=== PATIENT | female | born 1950 | race Caucasian/White ===

== ENCOUNTER 2016-07-20 16:10 | Inpatient (IN) | payer OTHER, MEDICARE ==
[2016-07-20] VITALS (7 sets, daily range): BP systolic 108–177; BP diastolic 63–78; PULSE 67–74; RESP 16–20; O2SAT 95–98
[~2016-07-20] VITALS: Ht 162.6 cm; Wt 87.6 kg
[~2016-07-20 16:10] MED LIST: ASCO100089 PO; ASPI81TA3 PO; ATOR40TA69 PO; CHOL-9 PO; CLOP75TA28 PO; LACT1CAP64 PO; METO25TA6 PO; NITR0.4T SL; VIT1TABL25 PO; [UNRECOGNIZED DRUG - OTHER] BOTH_EYES
--- NOTE | 2016-07-20 16:22 | ED.REPORT ---
[facility]-General Illness Date of Service Jul 20, 2016 ED Provider: Dr. Christine Pt is a 66 y/o female w/ a hx of CAD and [place] x2 s/p CABG, HTN, presenting to the ED via EMS due to dysrhythmia prior to arrival. The patient was being transferred for direct admission from [facility] due to unstable angina. While being transferred, medics called ahead and asked for an evaluation in the ED prior to admission due to what appeared to be sustained ventricular dysrhythmia. EMS strip shows torsades vs sustained polymorphic ventricular tachycardia. Paramedics tell me the patient had no changes in mental status or symptoms while this was occurring. Dr. Schafer was paged at 1610 and responded immediately and is coming down to see the patient in person along with hospitalist Dr. Ac Tuttle. 2 G magnesium started in the ambulance and patient arrives on heparin drip. Records from [facility] were reviewed: CBC unremarkable. Chemistry unremarkable with an exception of glucose of 107. Magnesium lab value not obtained. Troponin was normal by their assay less than 0.010. INR was 1.0. EKG at [facility] dated 07/20/16 shows sinus rhythm without acute ischemic changes x2. Chest x-ray was negative. Nursing Notes Stated Complaint: DYSRHYTHMIA Chief Complaint: Dysrhythmia/Cardiac Nursing Notes Reviewed: Yes Allergies: Coded Allergies: No Known Allergies (Verified Allergy, Unknown, 02/04/15) Scheduled ([thyadine]) 1 GTT BOTH_EYES DAILY Ascorbic Acid (Vitamin C) 1,000 Mg Tab.chew 1,000 MG PO BID Aspirin Chew (Aspirin Chew) 81 Mg Tablet 81 MG PO DAILY Atorvastatin Calcium (Atorvastatin Calcium) 40 Mg Tablet 80 MG PO HS Clopidogrel (Clopidogrel) 75 Mg Tablet 75 MG PO DAILY Lactobacillus Rhamnosus R0011 (Probiotic Digestive Care) 1 Each Capsule 1 EACH PO noon Metoprolol Tartrate (Metoprolol Tartrate) 25 Mg Tablet 12.5 MG PO BID Vit A,C & E/Lutein/Minerals (Ocuvite with Lutein Tablet) 1 Each Tablet 0.5 TAB- CAP PO DAILYWD Scheduled PRN Nitroglycerin SL (Nitrostat) 0.4 Mg Tablet 0.4 MG SL PRN PRN PRN For Chest Pain Miscellaneous Medications Cholecalciferol (Vitamin D3) (Vitamin D3) 10,000 Unit Tablet 30,000 UNIT PO General Time Seen by MD: 16:21 Chief Complaint Other (Dysrhythmia) Hx Obtained From: Patient, EMS Arrived By: Ambulance Sudden in Onset?: Yes Onset Occurred: 1 - 15 minutes ago Symptom Duration: 1 - 15 minutes Severity: Current: No pain currently Severity: Maximum: No pain Recent Healthcare: Recent doctor visit, Recent testing Past Medical History Past Medical History CAD w/ [place] x2 s/p CABG Hypertension Hiatal hernia Hx kidney stones Hx UTI Depression Past Surgical History CABG Bilateral breast augmentation Family History Breast CA - mother Smoking History Former Smoker Social History Alcohol Use: "Social" Ambulatory Status Independent Review of Systems Full Review of Systems Respiratory: Denies: Shortness of breath Cardiovascular: Denies: Chest pain, Palpitations Neurologic: Denies: Change LOC, Lightheaded Complete sys rev & neg: except as marked. Physical Exam Vital Signs Vital Signs Date Time Temp Pulse Resp B/P Pulse Ox O2 Delivery O2 Flow Rate FiO2 07/20/16 16:10 37.0 72 20 177/70 97 Room Air Initial VS: Reviewed, Vital signs abnormal Head / Eyes: Atraumatic, Normocephalic, PERRL ENT: Conjunctiva normal, No scleral icterus Neck: Full range of motion Respiratory: No respiratory distress Abdomen / GI: No distention Extremities: Vascular intact, No swelling Skin: Warm, Dry, No cyanosis Neurologic: Alert, Oriented, Nonfocal Psychiatric: Mood/affect normal, Behavior normal, Normal thought content General/Constitutional: Awake, Alert, No acute distress, Well appearing, Cooperative, Not toxic appearing Interpretation & Diagnostics ECG Interpretation ECG Interpretation: Normal sinus rhythm rate [address] flattening Time: 16:53 Interpreted by: ED physician, Aircraft Skin Burnisher Normal ECG Interpretation: No acute ischemic changes Re-Eval/Medical Decision Med Decision/Clinical Course 66-year-old female diverted from direct admit to the emergency department by EMS of concern for possible cardiac dysrhythmia. The patient was asymptomatic during the period of time the possible dysrhythmia was occurring. from the Rhythm strip, it appears at this was likely artifact. It is actually her rhythm I would be surprised if it was perfusing. Patient was stable throughout her stay here in the department. She was seen by cardiology and medicine and admitted as planned. Consultation #1: Referral / Consult Name: Wilder Schafer MD Consulted With: Cardiology Call Returned at: 16:20 Garment Inspector: Will see patient, Agrees with eval, Agrees with plan Note: Evaluated patient in room at time of arrival. Believes the rhythm might have been artifact although it is difficult to say with certainty. Consultation #2: Referral / Consult Name: Ac Tuttle MD Consulted With: Hospitalist Call Returned at: 16:20 Garment Inspector: Will see patient, Agrees with eval, Agrees with plan, Accepts admit Note: Evaluated the patient in the room at time of arrival. Counseled Regarding: Diagnosis, Lab results, Need for admission Discharge & Departure Primary Impression: Ventricular arrhythmia Disposition: ADMITTED TO HOSPITAL Discharge Condition All VS Reviewed: Yes Condition: Stable Referrals: Ever Oshea MD (PCP) Scribe Attestation Portions of this note were transcribed by Jerry Caballero. I, Dr. Christine personally performed the history, physical exam and medical decision-making; I reviewed and confirmed the accuracy of the information in the transcribed note. Signed by Marisabel Johnson, 07/20/16 - [id number] copies to: Ever Oshea MD, Donald L MD Jul 20, 2016 16:21 JERRY CABALLERO Jul 20, 2016 16:29
[2016-07-20] MEDS ORDERED: Heparin 5,000 Unit/mL Inj IVPUSH PRN ×2 (16:50→17:30)
[2016-07-20] MEDS ORDERED: Heparin 25K Unit/500mL 0.45 NS 25,000 UNIT in IV Premix 1 EACH IV SCH ×2 (16:50→17:30)
[2016-07-20] MEDS ORDERED: Ondansetron 2 mg/mL 2 mL Inj IVPUSH PRN ×2 (16:50→17:30)
[2016-07-20] MEDS ORDERED: Polyethylene Glycol (PEG) 17 Gm Powder PO PRN ×2 (16:50→17:30)
[2016-07-20 17:24] LABS: Magnesium 2.5 mg/dL (1.6-2.6)
[2016-07-20 17:28] LABS: TROPONIN T < 0.010 ug/L (0.0-0.011)
[2016-07-20] MEDS ORDERED: MeTOProlol 1 mg/mL 5 mL Inj IVPUSH SCH (17:40)
--- NOTE | 2016-07-20 17:44 | PCM.CHPCAR ---
Consult Subjective Date of service Jul 20, 2016 Date of admit Provider Requesting Consult Requesting Provider: David Christine MD Primary Care Physician Primary Care Provider: Ever Oshea MD Chief Complaint chest pain History of Present Illness This is a 66-year-old female with history of coronary artery bypass grafting back in July 2009 with a KAISER to LAD and saphenous to OM. The patient did well until 2014 she was admitted at [facility] with increasing episodes of chest pain and elevated troponins. The patient proceeded with a coronary and bypass angiogram showed 99% stenosis of mid body saphenous vein graft to the obtuse marginal artery. KAISER to LAD was patent. RCA showed total occlusion but with left to right collaterals. She received 2 bare metal stents to the saphenous vein graft and her symptoms resolved. However the patient continued to have recurrent chest pain and we started isosorbide mononitrate. She proceeded with a Lexiscan sestamibi just after that visit which show no evidence of significant ischemia. With reassurance she was asked to follow-up in 6 months. However back in January 2016 she was experiencing exertional chest pain that was concerning for angina. We increased her metoprolol titrated to 25 mg twice a day and started amlodipine once a day. I asked her to come back to follow-up to see how she was doing. In June 2009 she started to experience slight worsening of her chest pain so Ranexa was started 500 mg twice a day. Schedule stress echocardiogram soon thereafter because she was still complaining of significant and limited chest discomfort. The patient proceeded with a stress echocardiogram under modified Bubba protocol and she exercise just for 3 minutes and 55 seconds reaching only 69% of the patient's predicted heart rate. She had some slight ST depressions but nothing really conclusive for ischemia. Her resting ejection fraction was 53% without LV wall motion abnormalities. However post immediate stress echo images showed hypokinesis along the base to mid septum with questionable infarction involving the basal inferior wall. There is no significant augmentation of LV ejection fraction post stress. The patient also developed chest pain at low heart rate requiring some bleeding with nitroglycerin tablets. The patient was going to be scheduled for an outpatient cardiac catheterization but she presented to [facility] because of severe chest pain this morning. The patient decided to present herself to their emergency room house called to see if we should transfer the patient to [facility] for potential cardiac catheterization. The patient was transferred over to [facility] but in route she apparently developed some acute EKG changes that was concerning for torsades. She was given 2 g of intravenous magnesium and she was completely asymptomatic. However on my personal review shows sinus rhythm with artifact between her QRSs. The patient has not had any significant ventricular arrhythmias since being placed on a monitor. She denies any current chest pain at this moment. Review of Systems Review of Systems CONSTITUTIONAL: Negative for fever, weight loss or weight gain. HEENT: Eyes: Negative for glaucoma or cataracts. Ears: Negative pain or loss of hearing. Nose: Negative for nasal congestion. Negative for rhinorrhea or postnasal drip. Mouth: Negative for false teeth. Throat: Negative for masses or hoarseness. Negative for snoring. CARDIOVASCULAR: Positive for chest pain and palpitations but negative for, near syncope, syncope, PND, or orthopnea. RESPIRATORY: Negative for shortness of breath, hemoptysis, COPD, cough. GASTROINTESTINAL: Negative for nausea, vomiting, diarrhea or heartburn. GENITOURINARY: Negative for dysuria. MUSCULOSKELETAL: Negative for osteoarthritis. SKIN: Negative for rashes. NEUROLOGIC: Negative for headaches, blurry vision, CVA, mental status changes. PSYCHIATRIC: Negative for depression. Negative for daytime sleepiness or insomnia. ENDOCRINE: Negative for diabetes or thyroid abnormalities. HEMATOLOGIC: Negative for anemia or blood dyscrasias. Additional Information MEDS: Amlodipine 5 mg once a day Aspirin 81 mg once a day Atorvastatin 40 mg by mouth daily at bedtime Code Q10 200 mg once a day Metoprolol tartrate 25 mg half a tablet twice a day Clopidogrel 75 mg once a day Vitamin D3 Vitamin E Isosorbide mononitrate ER 60 mg 1 tablet once a day PMH Past Medical History Coronary artery disease History of coronary artery bypass grafting 2 Personal history of tobacco use Back pain Stable angina Hyperlipidemia History of non-ST elevation myocardial infarction Presence of bypass graft stent Hypertension Scheduled ([thyadine]) 1 GTT BOTH_EYES DAILY (Reported) Ascorbic Acid (Vitamin C) 1,000 Mg Tab.chew 1,000 MG PO BID (Reported) Aspirin Chew (Aspirin Chew) 81 Mg Tablet 81 MG PO DAILY Atorvastatin Calcium (Atorvastatin Calcium) 40 Mg Tablet 80 MG PO HS Clopidogrel (Clopidogrel) 75 Mg Tablet 75 MG PO DAILY Lactobacillus Rhamnosus R0011 (Probiotic Digestive Care) 1 Each Capsule 1 EACH PO noon (Reported) Metoprolol Tartrate (Metoprolol Tartrate) 25 Mg Tablet 12.5 MG PO BID Vit A,C & E/Lutein/Minerals (Ocuvite with Lutein Tablet) 1 Each Tablet 0.5 TAB- CAP PO DAILYWD (Reported) Scheduled PRN Nitroglycerin SL (Nitrostat) 0.4 Mg Tablet 0.4 MG SL PRN PRN PRN For Chest Pain Miscellaneous Medications Cholecalciferol (Vitamin D3) (Vitamin D3) 10,000 Unit Tablet 30,000 UNIT PO ( Reported) Current Inpatient Medications Current Medications Ondansetron HCl 4 to 8 mg Q4H PRN IVPUSH; Start 07/20/16 at 16:50; Stop at 17:27; Status DC Senna 17.2 mg BID PRN PO; Start 07/20/16 at 16:50; Stop 07/20/16 at 17:27; Status DC Polyethylene Glycol 17 gm DAILY PRN PO; Start 07/20/16 at 16:50; Stop 07/20/16 at 17:27; Status DC Aspirin 325 mg DAILY PO; Start 07/20/16 at 16:50; Stop 07/20/16 at 17:27; Status DC Morphine Sulfate 1-2 mg Q4H PRN IV; Start 07/20/16 at 16:50; Stop 07/20/16 at 17:27; Status DC Clopidogrel Bisulfate 75 mg DAILY PO; Start 07/20/16 at 16:50; Stop 07/20/16 at 17:27; Status DC Metoprolol Tartrate 12.5 mg BID PO; Start 07/20/16 at 20:30; Stop 07/20/16 at 20 :30; Status DC Heparin Sodium (Porcine) Per Protocol for a... PRN PRN IVPUSH; Start 07/20/16 at 16:50; Stop 07/20/16 at 17:27; Status DC Allergies: Coded Allergies: No Known Allergies (Verified Allergy, Unknown, 02/04/15) Family History Family History Father of 73 with sudden cardiac arrest secondary to myocardial infarction. Mother at 64 from myocardial infarction with an earlier episodes of heart attacks. Social History Hx Alcohol Use: Yes ("glass of wine 2-3x's a week")Hx Substance Use: NoHx Tobacco Use: No Smoking Status: Former Smoker Living Arrangement: with Family Exam Vital Signs Vital Sign - Last Date Time Temp Pulse Resp B/P Pulse Ox O2 Delivery O2 Flow Rate FiO2 07/20/16 16:45 68 17 164/75 97 Room Air 07/20/16 16:10 37.0 Objective GENERAL: This is a well-nourished, well-developed patient, in no apparent distress. HEAD: Atraumatic. Normocephalic. No temporal or scalp tenderness. EYES: Pupils equal round and reactive. Extraocular motions intact. No scleral icterus. No injection or drainage. ENT: Nose without bleeding, purulent drainage or septal hematoma. Throat without erythema, tonsillar hypertrophy or exudate. Uvula midline. Airway patent. NECK: Trachea midline. No JVD or lymphadenopathy. Supple, nontender, no meningeal signs. CARDIOVASCULAR: Regular rate and rhythm without murmurs, gallops, or rubs. RESPIRATORY: Clear to auscultation. Breath sounds equal bilaterally. No wheezes , rales, or rhonchi. GASTROINTESTINAL: Abdomen soft, non-tender, nondistended. No hepato-splenomegaly , or palpable masses. No guarding. EXTREMITIES: No clubbing, cyanosis, or edema. No joint tenderness, effusion, or edema noted. No calf tenderness. Negative Homans sign bilaterally. BACK: Nontender without deformity or crepitance. No flank tenderness. Lab and Diagnostics 12-lead ECG Sinus rhythm with nonspecific ST-T changes. These are old in comparison to her previous EKG. EKGs from medics shows sinus rhythm with artifact between QRSs. This is not torsades. Assessment & Plan Problems: (1) Unstable angina pectoris Plan: Symptoms are concerning for unstable angina. Given her recent abnormal stress echocardiogram, I think it would be prudent to admit the patient and schedule her for heart catheterization tomorrow at the schedule allows it. We will keep nothing by mouth just in case. For now we will load her up with clopidogrel 300 mg 1 and start her on IV heparin. She will continue with her metoprolol, amlodipine, atorvastatin, and low dose ASA. The patient agrees to the plan. I will ask my associate Dr. Levine to perform the cardiac catheterization. Status: Acute ICD Code: I20.0 (2) Coronary artery disease Qualifiers: Coronary Disease-Associated Artery/Lesion type: ruby artery [place] vs. transplanted heart: ruby heart Associated angina: with unstable angina Qualified Code: I25.110 - Atherosclerotic heart disease of ruby coronary artery with unstable angina pectoris Status: Chronic ICD Code: I25.10 (3) Hyperlipidemia Qualifiers: Hyperlipidemia type: Mixed hyperlipidemia Qualified Code: E78.2 - Mixed hyperlipidemia Status: Chronic ICD Code: E78.5 (4) Hypertension Qualifiers: Hypertension type: essential hypertension Status: Chronic ICD Code: I10 (5) History of coronary artery bypass graft x 2 Status: Chronic ICD Code: Z95.1 Cardiology Plan: Catherization, Lipid assessment & treatment Resuscitation Status: CPR: Attempt Resuscitation Time spent 80 minutes Wilder Schafer MD Jul 20, 2016 17:44
--- NOTE | 2016-07-20 17:48 | PCM.HPMED ---
Subjective Date of Service Jul 20, 2016 Primary Provider: Admitting Physician: Primary Care Physician: Cami Flores MD Attending Physician: Admit Status: From the Emergency Department, Full Admit, Admit to [facility] Team, [facility] Telemetry Chief Complaint: Chest pain History of Present Illness: This is a 66-year-old female who is known to cardiology has a history of CAD with multiple myocardial infarctions and coronary bypass grafting. She apparently also has had stenting T1 over bypass grafts in approximately 2014. The patient has had recent increased vague chest pain symptoms prompting a dobutamine stress echo just 3 days ago. The results of that are said to indicate a septal abnormality. The patient developed acute neck pain today while at rest. No associated nausea vomiting or diaphoresis. No dyspnea. No recent exertional chest pain or pedal edema. No recent rhinorrhea or cough. She presented to the general ER where an EKG indicated T-wave inversions in leads V1 nightly 3. ST segment depressions or elevations. She had a negative troponin and was transferred here. Upon transfer there is a concern of torsades. No action was taken this resolved. The patient was entirely asymptomatic. Strips reviewed here and are felt to represent artifact. Review of Systems: No recent headache visual changes difficulty with hearing. No fevers or chills. No hematuria or dysuria. No polyuria. No nausea vomiting or diarrhea or blood per rectum. Also reviewed otherwise negative except as noted in history of present illness. Allergies Coded Allergies: No Known Allergies (Verified Allergy, Unknown, 02/04/15) Home Medications Medications include vitamin C 3000 mg twice a day aspirin 81 mg daily vitamin D3 5000 units twice a day CoQ10 10 mg daily isosorbide mononitrate 60 mg daily metoprolol XL 12.5 mg in the morning 25 with dinner her knowledge seen 5 mg twice a day Crestor 10 mg daily PMH 1. CAD with history of CABG and stents and bypass graft 2. Sodium had multiple myocardial infarctions. 3. Hypertension 4. Hiatal hernia. 5. Nephrolithiasis Surgical History CABG Family History Mother with breast cancer. Social History Occupation: works at [employer]. Hx Alcohol Use: Yes ("glass of wine 2-3x's a week") Hx Substance Use: No Hx Tobacco Use: No Smoking Status: Former Smoker Living Arrangement: Alone Exam Vital Signs Vital Sign - Last Date Time Temp Pulse Resp B/P Pulse Ox O2 Delivery O2 Flow Rate FiO2 07/20/16 16:45 68 17 164/75 97 Room Air 07/20/16 16:10 37.0 Exam Are going to 3. No distress. Fluent speech. Normal skull. Normal. Anicteric sclerae, symmetric pupils Oropharynx unremarkable no droop. Neck supple, normal thyroid. No adenopathy Lungs are clear to auscultation. Heart is regular without murmur gallop or rub Abdomen is soft nontender. Extremities are free of edema with good pedal and radial pulses. Skin is free of rash or lesions. Joints are not swollen or deformed. Muscles normal tone. Flat affect Lab and Diagnostics 12-lead ECG Normal sinus rhythm with T-wave inversions in lead V1 nightly 3. No ST segment changes. Assessment & Plan 1. Unstable angina. POA. Plan is to discontinue heparin drip and other baseline cardiac medications including dual antiplatelet agents. Patient seen by cardiology in the ED and will presumptively undergo an angiogram tomorrow. 2. Hypertension, POA. We will continue Toprol. 3. Question of torsades while being transported but lately likely artifact. POA. We will follow clinically with telemetry. 4. Obesity, POA. 5. Patient is full resuscitation, discussed at time of admit para patient is admitted inpatient status with anticipated length of stay of over 2 nights. Pain Evaluation: Adequate Pain Control Resuscitation Status: CPR: Attempt Resuscitation Time spent 40 minutes Ac Tuttle MD Jul 20, 2016 17:48
--- NOTE | 2016-07-20 19:18 | NUR ---
Arrived to Unit Pt arrived to PCC room 2021 at ~1540 from ED. Pt's VSS on RA, A&Ox3, denied chest pain. Pt potentially going to laborer cook house in the am per laboratory phlebotomist, Pt made NPO after midnight.
--- NOTE | 2016-07-20 21:27 | NUR ---
chest pain: pt/ c/o chest pressure, near throat, 2/10, ekg obtained, pt. given one nitro.
[2016-07-20] MEDS: Sodium Chloride LOK Flush 10 mL Syringe IVFLUSH SCH (23:56)
[2016-07-21] VITALS (8 sets, daily range): BP systolic 121–147; BP diastolic 64–84; PULSE 56–68; RESP 16–20; O2SAT 95–98
[2016-07-21] MEDS ORDERED: RANO500T3 PO (02:14)
[2016-07-21] MEDS ORDERED: ATOR40TA69 PO (02:14)
[2016-07-21] MEDS ORDERED: LACT1CAP73 PO (02:14)
[2016-07-21] MEDS ORDERED: GLUC-123 PO (02:14)
[2016-07-21] MEDS ORDERED: DOCU240C41 PO (02:14)
[2016-07-21 05:21] LABS: BASOPHILS % (AUTO) 0.3 % (0-3); MONOCYTES % (AUTO) 12.1 % (4-12); Mean Corpuscular Hemoglobin 32.2 pg (27.0-35.0); Mean Corpuscular Volume 99.3 fL (81-100); NEUTROPHILS % (AUTO) 53.2 % (40-74); Platelet Count 163 bil/L (150-400)
[2016-07-21 05:57] LABS: TROPONIN T 0.01 ug/L (0.0-0.011)
[2016-07-21] MEDS ORDERED: 0.9% Sodium Chloride 1,000 ML IV ONE (06:00)
[2016-07-21] MEDS: [UNRECOGNIZED DRUG - OTHER] BOTH_EYES SCH (08:30)
[2016-07-21] MEDS: Sodium Chloride LOK Flush 10 mL Syringe IVFLUSH SCH ×2 (10:27→16:30)
--- NOTE | 2016-07-21 17:25 | NUR ---
spiritual care: pt request for ritual rec. through nursing provided communion ritual and conversational support. Pt apprehensive about surgery. appreciative of spiritual care support; will plan to follow
--- NOTE | 2016-07-21 17:32 | NUR ---
Social Work Note: Initial Assessment Data& Assessment: EMR reviewed. SW met with pt at bedside to discuss discharge planning, SW role explained. SW provided phone number on pt whiteboard. Sarah Zelaya is a 66 year old female admitted on 07/20/2016 for unstable angina. Pt will be going to the laborer construction or leak gang tomorrow. Pt has [employer] out of [facility] and Medicare insurance coverage. Pt sees Cami Flores MD for primary care. Pt lives in [place] in a condo on the second floor with 15 steps to get to her condo. Pt is independent at baseline but pt daughter does help carry groceries up to her condo and helps ensure her medications are managed correctly. Pt does not use any DME and denies any HH or SNF hx. Pt denies LT insurance or VA benefits. Pt provided with DPOA/Advanced Directive paperwork per her request. Pt confirmed her daughter will be transporting her home when medically ready. Pt denies any other needs at this time. SW to continue to follow if any needs arise. Plan: Anticipated discharge home via POV when medically ready. Pt denies any other needs at this time. SW to continue to follow if any needs arise. ASTRID Rhodes Addendum: 07/21/16 at 1736 by SWAPNIL HOFFMAN Amended: Links added.
--- NOTE | 2016-07-21 18:22 | NUR ---
Uneventful shift Patient alert and oriented x3, up independently in the room, no reports of chest pain -- patient did report one episode of "a little pressure" that resolved within a few moments. HR sinus/constantin high 50s-mid 60s, SPO2 high 90s on RA, Afebrile, tolerating PO intake well with no reports of n/v/d/c or abdominal pain. Patient NPO at midnight for brick and blocker aid labor tomorrow -- heparin gtt currently infusing at 950 units per hour.
--- NOTE | 2016-07-21 21:40 | PCM.PNMED ---
Subjective Date of Service Jul 21, 2016 Subjective Overnight: Uneventful overnight, no complaints. Today: He reports some mild shortness of breath, improved. He also repeats continuing decreased appetite. Otherwise, he has no complaints. Exam Vital Signs Vital Sign - Last Date Time Temp Pulse Resp B/P Pulse Ox O2 Delivery O2 Flow Rate FiO2 07/21/16 04:51 36.7 65 16 147/84 95 Room Air Intake and Output 07/20/16 07/20/16 07/21/16 Cumulative From/Thru 15:00 23:00 07:00 07/20/16 16:10 - 07/21/16 06:08 Intake Total 10 ml 460 ml 470 ml Output Total 450 ml 1000 ml 1450 ml Balance -440 ml -540 ml -980 ml Intake Oral 300 ml 300 ml IV Total 10 ml 160 ml 170 ml Output Urine Total 450 ml 1000 ml 1450 ml # Voids 3 3 # Bowel Movements 1 1 2 Exam General: Frail and ill-appearing gentleman lying in bed. No acute distress, well -developed, well-nourished, appropriately interactive. HEENT: Normocephalic, atraumatic. Dry scalp. External ears without defect. Pupils equal, round, and reactive to light. Anicteric sclerae, moist conjunctivae, and no lid lag. Neck: Supple. No lymphadenopathy or thyromegaly. Cardiovascular: Regular rate and rhythm with no murmurs, rubs, or gallops appreciated Pulmonary: Wheezes bilaterally, worse on right. Abdomen: Bowel tones present. Soft, nontender, nondistended. Extremities: No clubbing, cyanosis, edema, or lymphadenopathy appreciated. Skin: No rash, ulcers, or subcutaneous nodules appreciated. Neurological: Cranial nerves grossly intact. Psychiatric: Normal mood and affect. Alert and oriented to person, place, and time. IVs and Medications Medications Reviewed: Medications were reviewed in detail Lab and Diagnostics Result Diagram: 07/21/16 0510 07/21/16 0510 12-lead ECG Normal sinus rhythm with T-wave inversions in lead V1 nightly 3. No ST segment changes. Assessment & Plan This is a 66-year-old who presented herself to their emergency room as a transfer to [facility] for potential cardiac catheterization. The patient was transferred over to [facility] but in route she apparently developed some acute EKG changes that was concerning for torsades. She was given 2 g of intravenous magnesium and she was completely asymptomatic. However on my personal review shows sinus rhythm with artifact between her QRSs. The patient has not had any significant ventricular arrhythmias since being placed on a monitor. She denies any current chest pain at this moment. 1. Unstable angina. POA. Active. - Plan is to discontinue heparin drip and other baseline cardiac medications including dual antiplatelet agents. - Patient seen by cardiology in the ED and will presumptively undergo an angiogram today. 2. Hypertension, POA. Controlled. - We will continue Toprol. 3. Question of torsades while being transported but lately likely artifact. POA. - We will follow clinically with telemetry. 4. Obesity, POA. Active. -BMI 33.3 Patient is full resuscitation, discussed at time of admit para patient is admitted inpatient status with anticipated length of stay of over 2 nights. Pain Evaluation: Adequate Pain Control Resuscitation Status: CPR: Attempt Resuscitation Time spent 35 minutes Attending Statement Patient seen and examined with house staff. Agree with all attached documentation. JENNIFER BUENO DO Jul 21, 2016 09:53 Ac Tuttle MD Jul 30, 2016 07:19
[2016-07-22] VITALS (17 sets, daily range): BP systolic 106–149; BP diastolic 56–92; PULSE 58–95; RESP 16–22; O2SAT 92–98
[2016-07-22] MEDS: Sodium Chloride LOK Flush 10 mL Syringe IVFLUSH SCH ×4 (00:20→23:32)
[2016-07-22 04:53] LABS: BASOPHILS % (AUTO) 0.4 % (0-3); EOSINOPHILS % (AUTO) 3.1 % (0-5); MONOCYTES % (AUTO) 14.4 % (4-12); Mean Corpuscular Hemoglobin 32.5 pg (27.0-35.0); Mean Corpuscular Volume 99.5 fL (81-100); NEUTROPHILS % (AUTO) 55.1 % (40-74); Platelet Count 160 bil/L (150-400)
--- NOTE | 2016-07-22 06:42 | NUR ---
back pain pt c/o 02/08 back pain she thinks r/t the bed, called received order for tylenol 650mg PO gave with good results, heprin gtt infusing
[2016-07-22] MEDS: [UNRECOGNIZED DRUG - OTHER] BOTH_EYES SCH (08:08)
--- NOTE | 2016-07-22 09:00 | NUR ---
Metoprolol pt hr trending in high 50s. pt ordered for dose of Metoprolol situation discussed with am dose held. will continue to monitor.
[2016-07-22] MEDS ORDERED: Pantoprazole 4 mg/mL 10 mL Inj IVPUSH ONE (09:35)
--- NOTE | 2016-07-22 11:18 | PCM.PNMED ---
Subjective Date of Service Jul 22, 2016 Subjective Overnight: Uneventful overnight, new onset diarrhea. X6. Today: She reports some mild flank pain same as chronic condition. She has been NPO awaiting cardiac catheterization. Otherwise, he has no complaints. Exam Vital Signs Vital Sign - Last Date Time Temp Pulse Resp B/P Pulse Ox O2 Delivery O2 Flow Rate FiO2 07/22/16 07:45 36.9 58 18 133/84 96 Room Air Intake and Output 07/21/16 07/21/16 07/22/16 Cumulative From/Thru 15:00 23:00 07:00 07/20/16 16:10 - 07/22/16 06:17 Intake Total 1516 ml 852 ml 2838 ml Output Total 925 ml 1500 ml 3875 ml Balance 591 ml -648 ml -1037 ml Intake Oral 540 ml 440 ml 1280 ml IV Total 976 ml 412 ml 1558 ml Output Urine Total 725 ml 1500 ml 3675 ml Stool Total 200 ml 200 ml # Voids 3 # Bowel Movements 1 3 Exam General: Frail and ill-appearing gentleman lying in bed. No acute distress, well -developed, well-nourished, appropriately interactive. HEENT: Normocephalic, atraumatic. Dry scalp. External ears without defect. Pupils equal, round, and reactive to light. Anicteric sclerae, moist conjunctivae, and no lid lag. Neck: Supple. No lymphadenopathy or thyromegaly. Cardiovascular: Regular rate and rhythm with no murmurs, rubs, or gallops appreciated Pulmonary: Wheezes bilaterally, worse on right. Abdomen: Bowel tones present. Soft, nontender, nondistended. Extremities: No clubbing, cyanosis, edema, or lymphadenopathy appreciated. Skin: No rash, ulcers, or subcutaneous nodules appreciated. Neurological: Cranial nerves grossly intact. Psychiatric: Normal mood and affect. Alert and oriented to person, place, and time. IVs and Medications Medications Reviewed: Medications were reviewed in detail Lab and Diagnostics Result Diagram: 07/22/1643907/22/16439 12-lead ECG Normal sinus rhythm with T-wave inversions in lead V1 nightly 3. No ST segment changes. Assessment & Plan This is a 66-year-old who presented herself to their emergency room as a transfer to [facility] for potential cardiac catheterization. The patient was transferred over to [facility] but in route she apparently developed some acute EKG changes that was concerning for torsades. She was given 2 g of intravenous magnesium and she was completely asymptomatic. However on my personal review shows sinus rhythm with artifact between her QRSs. The patient has not had any significant ventricular arrhythmias since being placed on a monitor. She denies any current chest pain at this moment. 1. Unstable angina. POA. Active. - Plan is to discontinue heparin drip and other baseline cardiac medications including dual antiplatelet agents. - Patient seen by cardiology in the ED and will presumptively undergo an angiogram today. - Cardiology planning Cath today. 2. Hypertension, POA. Controlled. - We will continue Toprol. 3. Question of torsades while being transported but lately likely artifact. POA. - We will follow clinically with telemetry. 4. Obesity, POA. Active. -BMI 33.3 5. Acute Diarrhea, not present on admission. Active. - This is not likely C.Diff. Asher be a component of change of diet vs stress and anxiety regarding procedure. - C.Diff pending. - Loperamide. Patient is full resuscitation, discussed at time of admit para patient is admitted inpatient status with anticipated length of stay of over 2 nights. Pain Evaluation: Adequate Pain Control Resuscitation Status: CPR: Attempt Resuscitation Time spent 40 minutes Attending Statement Patient seen and examined with house staff. Agree with all attached documentation. JENNIFER BUENO DO Jul 22, 2016 11:18 Ac Tuttle MD Jul 30, 2016 07:24
[2016-07-22] MEDS ORDERED: Heparin 1,000 Units/500 mL NS Premix IV ONE ×2 (13:42→15:13)
[2016-07-22] MEDS ORDERED: Nitroglycerin 50,000 mcg/250 mL D5W Premix IV ONE (13:42)
[2016-07-22] MEDS ORDERED: Heparin 1,000 Unit/mL 10 mL Inj ONE (13:43)
[2016-07-22] MEDS ORDERED: fentaNYL-PF 50 mCg/mL 2 mL Inj ONE (14:06)
--- NOTE | 2016-07-22 14:07 | NUR ---
to cardiac cath tech to ordered for cardiac cath tech, patient aware. pt alert and oriented. Heparin stopped at 1335, and benadryl given per md order. pt voided, npo since midnight. pt transported in bed, residential monitor informed. pt departed unit at 1350.
--- NOTE | 2016-07-22 18:29 | NUR ---
Received/Recovery/Transfer Received from shift lab technician about 1555. VSS. Right groin with scant ooze. Dressing changed x2 then no further bleeding noted. No hematoma. C/O 8-9/10 hip and back pain and nausea. Zofran 4mg IVP and Morphine 2mg IVP given. Pillow placed under knees for comfort. Denies further nausea but does not want much po. Taking ice chips. Still rates pain 8/10 but states is more relaxed and was able to doze off, FELDT score 2-4. Incontinent of stool x3. Cleaned as needed. Report to Jayashree Sprague RN. Transported to 2021 at 1815 in no acute distress. Bedside check done. Addendum: 07/22/16 at 1836 by MIR METCALF RN Willie CORNEJO
--- NOTE | 2016-07-22 19:07 | CS94 ---
[address] [address] DIAGNOSTIC CARDIAC CATHETERIZATION PATIENT: TONYA FUENTES : 1950 MR#: [id number] ADMIT: 07/20/2016 JOB ID: [id number] SERVICE DATE: 07/22/2016 PROCEDURE NOTE-CARDIAC CATHETERIZATION LABORATORY: DATE OF PROCEDURE: Friday, July 22, 2016. EMERGENCY MEDICINE NURSE PRACTITIONER: Yousuf Levine MD. PROCEDURES: 1. Coronary angiogram--urgent. a. Graft angiography--saphenous vein graft to obtuse marginal; and KAISER to LAD. CLINICAL DETAILS: This 66-year-old woman presents to the cardiac catheterization laboratory for angiogram after she was admitted to the hospital several days ago with unstable angina. She had been transferred from an outside emergency department where she presented with severe chest discomfort. Her hospital course includes no further chest pain, negative troponin and nonspecific ECG. She has been under evaluation for progressive chest discomfort in the setting of known advanced coronary disease after coronary bypass in 2010. In January 2015, she had PCI with stents in the proximal portion and in the mid portion of SVG to OM. In the interim, she has had chest discomfort. It was atypical and now with some chest discomfort that is consistent with angina. This led to outpatient stress echo recently which showed a limited effort tolerance at only 3 minutes walking; chest pain on exertion; and exercise echo images showed suggested septal ischemia and possible inferior infarction. Cardiac catheterization has been scheduled as an outpatient at the point when she presented to the emergency department acutely. PROCEDURAL DETAILS: The patient had been evaluated and procedural consent had been obtained. I have met the patient and her daughter in the hospital room prior to the procedure and discussed the procedure further with them. Prior to the procedure, I reviewed the angiogram from January 2015 when she had PCI of SVG to OM. She has been treated chronically with aspirin and Plavix. She was brought to the catheterization laboratory where she was prepped sterilely and draped. CORONARY ANGIOGRAM: Arterial access was obtained without difficulty in the right common femoral artery using fluoroscopic localization over the femoral head and modified Seldinger technique to insert a 24 cm 6-Nigerian side-arm sheath. Catheters were advanced and exchanged over a 0.035 inch J-tipped guidewire. The left coronary artery was engaged with a 6-Nigerian JL-3.5 catheter. Initially, a JL-4 catheter was slightly too large to engage the left coronary well. It was not possible to engage the right coronary artery selectively. First a 6-Nigerian JR-4 catheter was used; then a 6-Nigerian KAISER catheter; and then a 6-Nigerian 3DRC. Ultimately, a cusp injection was taken immediately adjacent to the ostium of the right coronary artery. No flow into the coronary artery is seen and it is likely there is chronic flush occlusion of the right coronary artery. GRAFT ANGIOGRAPHY: The graft to OM was engaged with the 6-Nigerian JR-4 catheter. The KAISER graft to LAD was engaged with a 6-Nigerian KAISER catheter. LV not entered. Procedure without difficulty. Patient tolerated the procedure well. No complications. A side-arm sheath angiogram showed adequate access in the right common femoral artery for closure device. Arterial hemostasis was obtained without difficulty with a StarClose clip. The patient was transferred from the catheterization laboratory in stable condition to the SAM unit for ongoing care including by the primary hospitalist team. I discussed the procedure, findings and management considerations with the patient; with her daughter at length; with Cardiology; and with the hospitalist team. FINDINGS: 1. LMCA: The left main coronary artery is severely diffusely diseased with a 90% distal narrowing. This is similar to the prior angiograms, but now even somewhat more severely narrowed. 2. LAD: Left anterior descending coronary artery severe has diffuse disease and is occluded in its mid portion after the takeoff of a small to medium sized diagonal branch. The LAD has moderate proximal disease prior to the takeoff of the diagonal branch. Then, severe diffuse 90% narrowing in the mid portion prior to occlusion. The diagonal branch is intact with MARTINE-3 flow, but appears small diffusely diseased and tapers to a thready distal vessel. No competitive flow of KAISER graft is noted. Overall, the LAD and diagonal are similar to the prior films. 3. LCX: The left circumflex coronary artery fills in the proximal portion, then fills only slowly with MARTINE-1 flow distally. There is severe 95% ostial narrowing. Compared to the prior films in 2015, this artery has deteriorated and there is functionally occluded. Of note, in the past it did give a significant amount of collaterals to the distal right coronary artery. 4. RCA: The distal branches of the right coronary artery are seen by [id number] collaterals which come primarily from the LAD septal arcade. The distal right coronary artery is not well seen or opacified. Overall, collateral filling of the right coronary artery is substantially less than previously. The right coronary artery cannot be engaged selectively or visualized antegrade. There is heavy ostial calcium and no flow seen into the ostium of the right coronary artery. This is consistent with the prior angiogram and the clinical history of chronically totally occluded right coronary ostium. 5. SAPHENOUS VEIN GRAFT (SVG) to OM: The saphenous vein graft to OM is patent and intact with a moderate-sized branching runoff vessel. There is moderate diffuse atherosclerosis including about 40% in-stent restenosis in the proximal stent, but overall the angiographic appearance of the SVG to OM is satisfactory and stent patency is maintained. 6. KAISER to LAD: KAISER graft to LAD is intact and the runoff LAD is intact, but a small 1.5 mm vessel. It courses around the apex. The distal LAD gives just some thready collaterals that may go to the RCA and also probably to the LCX territory. CONCLUSIONS: 1. Coronary artery disease (CAD)-advanced and end-stage CAD including 90% LMCA; occluded mid LAD; functionally occluded ostial LCX now worse from previously and not anymore providing collaterals to RCA; and probable ostial occlusion of RCA with limited collateral filling of distal RCA noted. 2. GRAFTS: Intact graft to OM including patent 1-1/2-year-old bare metal stents (4.25 mm) in proximal SVG and in mid SVG. KAISER to LAD and run-off LAD intact and providing collaterals to circumflex territory. RECOMMENDATIONS: COMMENT: Today's study clarifies her coronary anatomy. Importantly, the vein graft to OM has not deteriorated after prior intervention in 2015. Reassuringly, the KAISER to LAD is intact. The overall impression of the angiogram is that there has been progression of her severe diffuse end-stage CAD including especially deterioration of the circumflex which had provided collaterals to the distal RCA. Overall, I did not see obvious culprit lesions that would clearly benefit her chest discomfort with revascularization. She has been treated medically with long-acting nitrates and Ranexa; and further efforts at medical therapy would appear to be the best option at this point.
--- NOTE | 2016-07-22 22:31 | NUR ---
fever pt with a temp of 38 oral, pt post heart cath late this afternoon, pt c/o feeling fatigued and "a little out of it" could passable be from medications given in SAM for pain or from heart cath. gave 650mg PO tylenol and fever coming down to 37.2. will cont plan of care
[2016-07-22] MEDS ORDERED: 0.9% Sodium Chloride 1,000 ML IV PRN (23:19)
[2016-07-22] MEDS ORDERED: 0.9% Sodium Chloride 250 ML IV PRN (23:19)
[2016-07-22] MEDS ORDERED: Atropine 1 mg/10 mL (Code) Syringe IVPUSH PRN (23:20)
[2016-07-22] MEDS ORDERED: Ondansetron 2 mg/mL 2 mL Inj IVPUSH PRN (23:20)
[2016-07-23 03:36] VITALS: BP 107/65; PULSE 84; RESP 15; O2SAT 92
[2016-07-23 03:47] LABS: BASOPHILS % (AUTO) 0.2 % (0-3); EOSINOPHILS % (AUTO) 0.6 % (0-5); MONOCYTES % (AUTO) 6.8 % (4-12); Mean Corpuscular Hemoglobin 32.2 pg (27.0-35.0); Mean Corpuscular Volume 100.8 fL (81-100); NEUTROPHILS % (AUTO) 80.2 % (40-74); Platelet Count 167 bil/L (150-400)
--- NOTE | 2016-07-23 07:54 | PCM.DIMED ---
JENNIFER BUENO DO 07/23/16 0752: Discharge Instructions Date of Service Jul 23, 2016 Dates of Hospitalization Jul 20, 2016 at 18:18 Discharge Diagnosis Discharge Diagnosis 1. Unstable angina. POA. Resolved. 2. Hypertension, POA. Controlled. - We will continue Toprol. 3. Obesity, POA. Active. 4. Acute Diarrhea, not present on admission. Resolved. 5. 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 Medication Instructions New Medications: Amlodipine 5 mg PO daily. Continue other home medications. Diet Heart Healthy Activity No restrictions Call your provider Fever or Chills, Shortness of breath, Chest pain, Excessive diarrhea, Weakness ( unilateral) Patient Instructions Follow-up plan Follow up with your primary care physician in 1-2 weeks following your hospital stay. Follow-up Provider: Cami Flores MD Follow-up with PCP in: 2 weeks Provider: Wilder Schafer MD Follow-up in: 1 week Miguel Angel Talbot MD 07/24/16 0729: Discharge Instructions Attending's Statement The patient was seen and examined together with Dr. Bueno on 07/23/2016 and I agree with the history, exam and plan as outlined in the note above. . JENNIFER BUENO DO Jul 23, 2016 07:52 Miguel Angel Talbot MD Jul 24, 2016 07:29
[2016-07-23 08:00] VITALS: BP 136/67; PULSE 79; RESP 20; O2SAT 95
[2016-07-23] MEDS: [UNRECOGNIZED DRUG - OTHER] BOTH_EYES SCH (08:30)
[2016-07-23] MEDS: Sodium Chloride LOK Flush 10 mL Syringe IVFLUSH SCH ×2 (08:55→16:30)
--- NOTE | 2016-07-23 10:41 | NUR ---
Mentation: Pt oriented to self/place, reports that she "is losing time." Does not remember having procedure yesterday, unable to name the year or date. Reports confusion/forgetfulness. Up ad richard in room, no gait instability noted. MD aware of concerns. Care ongoing.
--- NOTE | 2016-07-23 11:11 | NUR ---
GI Pt incontinent of loose stool. Unable to get to the toilet without incontinent bowel movement. Feeling nauseous afterward. Will reassess.
[2016-07-23] MEDS ORDERED: AMLO5TAB2 PO (13:06)
--- NOTE | 2016-07-23 17:00 | NUR ---
Discharge: Pt's daughter at bedside, requesting to speak to MD prior to d/c home. MD notified, excuse from work note provided to pt. Extensive discussion with pt/daughter about cath site care, cardiac catheterization discharge instructions provided. Given care notes r/t amlodipine, angina, and diarrhea. IVs d/c'd intact. Pt d/c'd home with all personal belongings, daughter providing transport.
--- NOTE | 2016-07-23 17:01 | NUR ---
Social Work Note: Discharge Data& Assessment: EMR reviewed. Per pt is medically ready for discharge. Sarah Zelaya is a 66 year old female admitted on 07/20/2016 for unstable angina. Per pt is medically improved and ready to discharge. Pt is independent in her room and at baseline. Pt daughter transporting pt home. SW spoke to pt daughter via phone call to confirm discharge plan and assess any unmet needs. Pt daughter explained she would be taking pt home with her until she is fully recovered. Pt daughter denies any other needs. No other discharge needs identified. Plan: Per pt is medically ready to discharge home via POV with daughter. Pt daughter denies any other needs. No other discharge needs identified. All updated and agreeable to plan. ASTRID Rhodes
--- NOTE | 2016-07-23 19:26 | PROG NOTE ---
[address] [address] PROGRESS NOTE PATIENT: TONYA FUENTES : 1949 MR#: [id number] ADMIT: 07/20/2016 JOB ID: [id number] DATE: 07/23/2016 CARDIOLOGY PROGRESS NOTE: CONSULTING PHYSICIAN: Cardiology--Yousuf Levine MD. PROBLEMS: Coronary artery disease (CAD): 1. Chest Pain: Admitted with clinical diagnosis of unstable angina. Troponins were negative; and ECG was nonspecific. 2. Cardiac Catheterization: Catheterization accomplished showing advanced end-stage coronary disease without current targets for revascularization; and previously stented SVG to OM still intact. SUBJECTIVE: I saw the patient on Cardiology rounds today, Saturday, July 23, 2016. This 66-year-old woman was admitted several days ago with chest pain suggestive of angina. It has been worsening recently. Exercise treadmill stress test had suggested possible inferior infarction; and possible septal ischemia. She had catheterization yesterday showing severe diffuse end-stage coronary disease; but reassuringly the vein graft previously stented is still intact, and KAISER graft to small LAD was intact. Overnight she has done well post catheterization and there have been no symptoms, no chest pain, and her right lower extremity is satisfactory. Diarrhea that developed in the hospital has mostly cleared; I noted C. diff titers were apparently negative. OBJECTIVE: Vital signs: Stable. Extremities: The right lower extremity is fully intact at the calf site, with distal perfusion and pulses only faintly palpable. ASSESSMENT AND RECOMMENDATIONS: I spoke at length again with the patient. Her daughter is not here this morning, but I had a long talk with her after the cath yesterday. I also talked with the primary Hospitalist team today in anticipation of her discharge today. She seems stable. Our plan is for medical therapy of her diffuse residual coronary lesions. We plan to start Imdur 30 mg daily as long-acting nitrate and resume her Ranexa 500 mg b.i.d. She knows to follow up closely with her primary physician, and with Dr. Schafer in a week in Cardiology Clinic. I contacted him, so he is aware of her status and of her discharge. Ranexa can be increased to 1000 b.i.d. if well tolerated. I noted she was thought to possibly have torsade on admission here; but that was ultimately felt to be artifact. She will need monitoring of QT and rhythm. Likewise Imdur, if tolerated, can be increased substantially from the initial starting dose of 30 mg a day. Finally, I discussed with her to continue aspirin indefinitely and Plavix if well tolerated and without bleeding. MTDD
--- NOTE | 2016-07-23 23:34 | PCM.DC.MED ---
Discharge Summary Date of Service Jul 23, 2016 Dates of Hospitalization Date of Hospital Admission Jul 20, 2016 at 18:18 Date of Discharge: Jul 23, 2016 Providers: Admitting Physician: Ac Tuttle MD Primary Care Physician: Cami Flores MD Attending Physician: Ac Tuttle MD Diagnosis at Time of Discharge Diagnosis at Time of Discharge 1. Unstable angina. POA. Resolved. 2. Hypertension, POA. Controlled. - We will continue Toprol. 3. Obesity, POA. Active. 4. Acute Diarrhea, not present on admission. Resolved. 5. 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 Procedures ECG 12 Lead Normal sinus rhythm with T-wave inversions in lead V1 nightly 3. No ST segment changes. Brief History This is a 66-year-old female who is known to cardiology has a history of CAD with multiple myocardial infarctions and coronary bypass grafting. She apparently also has had stenting T1 over bypass grafts in approximately 2014. The patient has had recent increased vague chest pain symptoms prompting a dobutamine stress echo just 3 days ago. The results of that are said to indicate a septal abnormality. The patient developed acute neck pain today while at rest. No associated nausea vomiting or diaphoresis. No dyspnea. No recent exertional chest pain or pedal edema. No recent rhinorrhea or cough. She presented to the general ER where an EKG indicated T-wave inversions in leads V1 nightly 3. ST segment depressions or elevations. She had a negative troponin and was transferred here. Upon transfer there is a concern of torsades. No action was taken this resolved. The patient was entirely asymptomatic. Strips reviewed here and are felt to represent artifact. Hospital Course Our plan is for medical therapy of her diffuse residual coronary lesions. We plan to start Imdur 30 mg daily for long-acting nitrate and resume her Ranexa 500 mg b.i.d. She knows to follow up closely with her primary physician with Dr. Schafer in a week in Cardiology [facility]. I contacted him, so he is aware of her status and of her discharge. Ranexa can be increased to 1000 b.i.d. if well tolerated. I noted she was thought to possibly have torsade on admission here but that was ultimately felt to be artifact. Likewise Imdur, if tolerated, can be increased substantially from the initial starting dose of 30 mg a day. Finally, I discussed with her to continue aspirin indefinitely and Plavix if well tolerated and without bleeding. This is a 66-year-old who presented herself to their emergency room as a transfer to [facility] for potential cardiac catheterization. The patient was transferred over to [facility] but in route she apparently developed some acute EKG changes that was concerning for torsades. She was given 2 g of intravenous magnesium and she was completely asymptomatic. However on my personal review shows sinus rhythm with artifact between her QRSs. The patient has not had any significant ventricular arrhythmias since being placed on a monitor. She denies any current chest pain at this moment. 1. Unstable angina. POA. Active. - Plan is to discontinue heparin drip and other baseline cardiac medications including dual antiplatelet agents. - Patient seen by cardiology in the ED and will presumptively undergo an angiogram today. - Cardiology planning Cath today. 2. Hypertension, POA. Controlled. - We will continue Toprol. 3. Question of torsades while being transported but lately likely artifact. POA. - We will follow clinically with telemetry. 4. Obesity, POA. Active. -BMI 33.3 5. Acute Diarrhea, not present on admission. Active. - This is not likely C.Diff. Asher be a component of change of diet vs stress and anxiety regarding procedure. - C.Diff pending. - Loperamide. Patient is full resuscitation, discussed at time of admit para patient is admitted inpatient status with anticipated length of stay of over 2 nights. Exam Vital Signs (Last) Date Time Temp Pulse Resp B/P Pulse Ox O2 Delivery O2 Flow Rate FiO2 07/23/16 08:00 37.3 79 20 136/67 95 Room Air Test 07/20/16 16:47 07/20/16 18:10 07/22/16 04:40 07/22/16 11:15 Magnesium Level 2.5mg/dL (1.6-2.6) Hold Urine Received (Received) Troponin T 0.010ug/L (0.0-0.011) Triglycerides Level 90mg/dL (0-149) Cholesterol Level 196mg/dL (100-199) LDL Cholesterol, Calculated 112.000mg/dL (0-99) VLDL Cholesterol 18.000mg/dL HDL Cholesterol 66mg/dL (>39) Cholesterol/HDL Ratio 2.97 (0.0-4.4) Activated Partial Thromboplast Time 52.4sec (22.8-33.0) Test 07/23/16 03:00 White Blood Count 6.2th/mm3 (3.8-10.1) Red Blood Count 3.82mil/mm3 (3.90-5.20) Hemoglobin 12.3g/dL (12.0-15.6) Hematocrit 38.5% (35.0-46.0) Mean Corpuscular Volume 100.8fL (81-100) Mean Corpuscular Hemoglobin 32.2pg (27.0-35.0) Mean Corpuscular Hemoglobin Concent 31.9% (32.0-37.0) Red Cell Distribution Width 13.8% (12.3-15.4) Platelet Count 167bil/L (150-400) Neutrophils (%) (Auto) 80.2% (40-74) Lymphocytes (%) (Auto) 11.9% (14-46) Monocytes (%) (Auto) 6.8% (4-12) Eosinophils (%) (Auto) 0.6% (0-5) Basophils (%) (Auto) 0.2% (0-3) Sodium Level 137mEq/L (134-144) Potassium Level 4.2mEq/L (3.5-5.2) Chloride Level 102mEq/L (97-108) Carbon Dioxide Level 22mmol/L (18-29) Blood Urea Nitrogen 12mg/dL (8-27) Creatinine 0.68mg/dL (0.57-1.00) Estimat Glomerular Filtration Rate 124mL/min (>59) Glucose Level 95mg/dL (60-99) Calcium Level 8.2mg/dL (8.5-10.1) Total Bilirubin 0.4mg/dL (0.0-1.2) Aspartate Amino Transf (AST/SGOT) 19U/L (0-50) Alanine Aminotransferase (ALT/SGPT) 17U/L (0-32) Alkaline Phosphatase 99U/L (25-165) Total Protein 5.7g/dL (6.4-8.4) Albumin 3.4g/dL (3.4-5.0) Discharge Medications Discharge Medications ([thyadine]) 1 GTT BOTH_EYES DAILY (Reported) Amlodipine (Amlodipine) 5 Mg Tablet 5 MG PO DAILY Prescribed by: JENNIFER BUENO DO Ascorbic Acid (Vitamin C) 1,000 Mg Tab.chew 1,000 MG PO BID (Reported) Aspirin Chew (Aspirin Chew) 81 Mg Tablet 81 MG PO DAILY Prescribed by: RANDAL DASILVA DO Atorvastatin Calcium (Atorvastatin Calcium) 40 Mg Tablet 40 MG PO DAILY ( Reported) Clopidogrel (Clopidogrel) 75 Mg Tablet 75 MG PO DAILY Prescribed by: RANDAL DASILVA DO Lactobacillus Combo No.11 (Probiotic) 1 Each Cap.sprink 1 EACH PO DAILY ( Reported) Lactobacillus Rhamnosus R0011 (Probiotic Digestive Care) 1 Each Capsule 1 EACH PO noon (Reported) Metoprolol Tartrate (Metoprolol Tartrate) 25 Mg Tablet 12.5 MG PO BID Prescribed by: RANDAL DASILVA DO Ranolazine ER (Ranexa) 500 Mg Tablet.er 500 MG PO DAILY (Reported) Vit A,C & E/Lutein/Minerals (Ocuvite with Lutein Tablet) 1 Each Tablet 0.5 TAB- CAP PO DAILYWD (Reported) As needed Nitroglycerin SL (Nitrostat) 0.4 Mg Tablet 0.4 MG SL PRN PRN PRN For Chest Pain Prescribed by: RANDAL DASILVA DO Miscellaneous Medications Cholecalciferol (Vitamin D3) (Vitamin D3) 10,000 Unit Tablet 30,000 UNIT PO ( Reported) Docusate Calcium (Stool Softener) 240 Mg Capsule 240 MG PO (Reported) Gluc/Eusebio-MSM#2/C/D3/Fritz/Born (Wlmudtqmsd-Eiyflylevnm-ZTE Tab) 1 Each Tablet 1 EACH PO (Reported) Additional med instructions New Medications: Amlodipine 5 mg PO daily. Continue other home medications. Followup Plan Follow-up plan Follow up with your primary care physician in 1-2 weeks following your hospital stay. Discharge Diet: Heart Healthy Discharge Activity: No restrictions Follow-up Provider: Cami Flores MD Follow-up with PCP in: 2 weeks Provider: Wilder Schafer MD Follow-up in: 1 week Time spent Greater than 30 minutes was spent in preparation of discharge with greater than 50% of that time dedicated to patient counseling and coordination of care. . Attending Statement The patient was seen and examined together with Dr. Bueno on 07/23/2016 and I agree with the history, exam and plan as outlined in the note above. . copies to: Cami Flores MD, COREY P DO Jul 23, 2016 23:30 Miguel Angel Talbot MD Jul 27, 2016 07:39
== END 2016-07-23 17:20 | disposition home or self-care (01) | DRG 303 ==
LOC: SED 16:10 → EDBD 16:10 → SED 17:27 → PCC 18:18
PROVIDERS: ADMIT Hospitalist; ATTEND Hospitalist
DX: I25.110 Atherosclerotic heart disease of native coronary artery with unstable angina pectoris (principal); I25.2 Old myocardial infarction; Z95.1 Presence of aortocoronary bypass graft; Z79.82 Long term (current) use of aspirin; Z87.891 Personal history of nicotine dependence; I10 Essential (primary) hypertension; E66.09 Other obesity due to excess calories; Z68.33 Body mass index [BMI] 33.0-33.9, adult; R19.7 Diarrhea, unspecified

== ENCOUNTER 2017-02-27 00:40 | Day surgery (SDC) | payer OTHER, MEDICARE ==
[2017-02-27] VITALS (15 sets, daily range): BP systolic 89–142; BP diastolic 47–95; PULSE 60–80; RESP 11–17; O2SAT 93–97
[~2017-02-27] VITALS: Ht 157.5 cm; Wt 79.9 kg
[~2017-02-27 00:40] MED LIST changes: -ASCO100089 PO; -ATOR40TA69 PO; -CLOP75TA28 PO; +FLAX100038 PO; +ISOS120T6 PO; -LACT1CAP64 PO; -METO25TA6 PO; +MORP10SY4 IV; +MORP15TA PO; +RANO500T3 PO; -[UNRECOGNIZED DRUG - OTHER] BOTH_EYES
[2017-02-27] MEDS ORDERED: 0.9% Sodium Chloride 1,000 ML IV ONE ×2 (08:06→16:40)
[2017-02-27] MEDS ORDERED: ASCO-294 PO (09:36)
[2017-02-27] MEDS ORDERED: CHOL200047 PO (09:36)
[2017-02-27] MEDS ORDERED: ISOS60TA2 PO (09:36)
[2017-02-27] MEDS ORDERED: MORP10SO PO (09:36)
[2017-02-27 09:39] LABS: BASOPHILS % (AUTO) 0.5 % (0-3); EOSINOPHILS % (AUTO) 1.8 % (0-5); MONOCYTES % (AUTO) 11.1 % (4-12); Mean Corpuscular Volume 93.1 fL (81-100); NEUTROPHILS % (AUTO) 54.8 % (40-74); Platelet Count 205 bil/L (150-400)
--- NOTE | 2017-02-27 09:41 | NUR ---
Admit [facility] Admitted to [facility] about 829. VSS. Tele SR. Denies pain. IVs started and labs sent. See EMR for further info and assessment. Procedure and recovery reviewed and verbalizes understanding. Awaiting prosthetics lab technician.
[2017-02-27 09:43] LABS: INR 0.94 ratio
[2017-02-27] MEDS ORDERED: Heparin 10,000 Unit/1,000 mL NS Premix IV ONE ×2 (09:51→11:48)
[2017-02-27] MEDS ORDERED: Heparin 1,000 Unit/mL 10 mL Inj ONE ×2 (09:51→10:06)
[2017-02-27] MEDS ORDERED: Heparin 1,000 Units/500 mL NS Premix IV ONE (09:51)
[2017-02-27] MEDS ORDERED: Nitroglycerin 50,000 mcg/250 mL D5W Premix IV ONE (09:51)
[2017-02-27] MEDS ORDERED: Verapamil 2.5 mg/mL 2 mL Inj ONE (10:06)
[2017-02-27] MEDS ORDERED: Atropine 1 mg/10 mL (Code) Syringe ONE (10:22)
[2017-02-27] MEDS ORDERED: EPINEPHrine 0.1 mg/mL 10 mL Syringe ONE (10:22)
[2017-02-27] MEDS ORDERED: fentaNYL-PF 50 mCg/mL 2 mL Inj ONE ×4 (10:23→12:08)
[2017-02-27] MEDS ORDERED: Phenylephrine/NS-PF 100 mCg/mL 5 mL Syringe IVPUSH ONE (10:23)
[2017-02-27] MEDS ORDERED: Protamine Sulfate 10 mg/mL 5 mL Inj ONE (13:13)
--- NOTE | 2017-02-27 13:44 | DI95 ---
[address] [address] INTERVENTIONAL CARDIAC CATHETERIZATION PATIENT: TONYA FUENTES : 1950 MR#: [id number] ADMIT: 02/27/2017 JOB ID: [id number] DATE OF PROCEDURE: 02/27/2017 PATIENT PROFILE: The patient is a 66-year-old lady with history of hypertension, hyperlipidemia, and prior smoking. She underwent coronary artery bypass surgery x2 on August 27, 2009, and bare metal stent to the saphenous vein graft to the obtuse marginal branch on February 15, 2015. She has recurrent angina that is limited to her physical activity. She takes nitroglycerin, 3-5 pills every day. PROCEDURE: 1. Rotational atherectomy to the left main. 2. Balloon angioplasty and stenting to the left main. 3. Vascular closure device: Perclose. COMPLICATION: Coronary dissection. METHOD: Arterial access was obtained from the right groin under 1% lidocaine local anesthesia using a 7-[place] sheath. It was somewhat difficult to engage the left coronary ostium due to calcification at the left main origin. Multiple guide catheters were used including CLS 4 and JL4 guide. Finally the guide was then changed to a 7-[place] JL 3.5 guide. A Runthrough wire together with a FineCross catheter was then used and placed inside the left main and diagonal branch. It was then exchanged to a Rota-Floppy wire. A Rotablator 1.5 mm loreto was used for rotational atherectomy in the left main lesion. The 1.5 loreto was advanced into the proximal half; however, it was not able to cross the distal left main lesion. The patient developed chest discomfort with ST change at this point. The 1.5 loreto was then removed. Coronary angiogram demonstrated coronary dissection. A 1.25 mm balloon was used to dilate a left main lesion. The ST-segment improved together with her chest discomfort. A Rotablator 1.25 mm loreto was then used for rotational atherectomy. This successfully crossed the left main lesion. This 1.25 mm loreto was then removed. A run-through wire was placed inside the diagonal branch. The lesion was then pre-dilated with a 1.20, 1.5 and 2.0 mm balloons. This was followed by an NC 2.5 x 20 mm balloon. An Ashu 2.5 x 15 mm stent was placed inside the distal left main lesion and deployed at 12 atmospheres for 20 seconds. Another [place] 2.5 x 12 mm stent was placed in the proximal left main lesion and deployed at 12 atmospheres. A 2.75 x 15 mm NC balloon was then used for post stent deployment dilation. It was inflated up to 18 atmospheres for 30 seconds. Final angiogram was obtained. Right femoral angiogram was performed before sheath removal. Hemostasis was achieved by using a Perclose device. The patient tolerated the procedure well. She was transferred to [facility] in good condition. TOTAL CONTRAST USED: 260 cc. FLUORO TIME: 30.4 minutes. The total radiation dose is 16 mGy. RESULTS: Successful rotational atherectomy, balloon angioplasty, and stent placement to the heavily calcified left main lesion to achieve an excellent angiographic result with MARTINE-3 flow distally. The procedure was complicated by coronary dissection and transient ST-segment change. NOTE: Please use modifier code 22 due to complicated and prolong procedure. MTDD
--- NOTE | 2017-02-27 15:37 | NUR ---
Received Pt. to laborer cheesemaking about 1030 and returned about 1345. VSS. Tele SR. Denies pain. Right groin without bleeding or hematoma. Taking po well. Assisted to use bedpan without change in groin. IVF infusing per order. Continue to monitor per orders. Awaiting bed assignment.
--- NOTE | 2017-02-27 16:10 | NUR ---
Low BP Pt. fell asleep and BP decreased to 89/56. Right groin without hematoma. Denies pain, nausea, dizziness or any symptoms. HR and Tele unchanged, SR in 60's and 70's. Cuff adjusted and BP 85/49. Put head down some and 250ml bolus initiated per order. Groin rechecked and continues to deny symptoms. Next BP 90/54. Continue to monitor.
[2017-02-27] MEDS ORDERED: 0.9% Sodium Chloride 250 ML BOLUS IV PRN (16:40)
[2017-02-27] MEDS ORDERED: Atropine 1 mg/10 mL (Code) Syringe IVPUSH PRN (16:40)
[2017-02-27] MEDS ORDERED: Sodium Chloride LOK Flush 10 mL Syringe IVFLUSH PRN (16:40)
[2017-02-27] MEDS ORDERED: Ondansetron 2 mg/mL 2 mL Inj IVPUSH PRN (16:40)
--- NOTE | 2017-02-27 17:14 | NUR ---
Transfer of care SBP now up to 104-108. Remains asymptomatic and groin stable. Report given to Grecia Mcdaniel RN on P[facility] and to Alexander Vela RN in [facility].
[2017-02-27] MEDS ORDERED: Morphine 2 mg/mL 5 mL Oral Solution PO PRN (17:25)
--- NOTE | 2017-02-27 18:17 | NUR ---
Arrived to [facility] Patient arrived to unit via bed. ROBERT Munoz stated patient had some oozing at groin site and sand bag in place. Sandbag taken off, there was no drainage noted on the new dressing. Site soft, non tender, no redness or swelling noted. Patient A&Ox3, denies pain/discomfort, VSS. Will continue to monitor site closely for oozing, or other s/sx complications. Family at bedside and call light within reach.
[2017-02-28 03:33] VITALS: BP 113/69; PULSE 69; RESP 16; O2SAT 97
[2017-02-28 05:34] VITALS: PULSE 69
--- NOTE | 2017-02-28 06:45 | NUR ---
Status Update Pt VSS remain stable and pt right groin site continues to be soft to the touch. Pt does c/o pain at the catheter insertion site on the right when up with activity. Pt tolerates activity and has gotten up a few times during the shift coordinator to go to the bathroom with no c/o dizziness or chest pain. Pt has remained chest pain free.
[2017-02-28 08:12] LABS: Mean Corpuscular Hemoglobin 29.7 pg (27.0-35.0); Mean Corpuscular Volume 94.3 fL (81-100)
[2017-02-28] MEDS ORDERED: Ascorbic Acid 500 mg Tablet PO SCH ×2 (08:30)
[2017-02-28] MEDS ORDERED: Isosorbide Mononitrate 60 mg ER24 Tablet PO SCH (08:30)
[2017-02-28] MEDS ORDERED: Omega-3 Fatty Acids 1,000 mg Capsule PO SCH (08:30)
[2017-02-28 08:54] VITALS: BP 127/67; PULSE 62; RESP 18; O2SAT 97
--- NOTE | 2017-02-28 12:55 | NUR ---
discharge of patient Reviewed discharge instruction with patient. Patient verbalized understanding. Patient discharged by walking out of hospital with prescription and instructions. IV and Telemetry previously discontinued. patient left hospital with daughter to home self care.
--- NOTE | 2017-02-28 13:22 | DIS ---
[address] [address] DISCHARGE SUMMARY PATIENT: TONYA FUENTES : 1950 MR#: [id number] ADMIT: 02/27/2017 JOB ID: [id number] DIS: 02/28/2017 ADMITTING DIAGNOSIS: Angina pectoris, [place] [employer] class IV. DISCHARGE DIAGNOSIS: Angina pectoris, [place] [employer] class IV. SECONDARY DIAGNOSES: 1. Status post coronary artery bypass surgery x2 in 2009. 2. Status post bare-metal stent to the saphenous vein graft to the obtuse marginal branch in 2014. 3. Hypertension. 4. Hyperlipidemia. 5. Prior smoking. 6. Right carotid bruit. PROCEDURE: 1. Rotational atherectomy to the left main. 2. Balloon angioplasty and stenting to the left main. HISTORY: Please see the detailed history in the accompanying office note, dated February 09, 2017. The patient has chest pain at rest on a daily basis. She used nitroglycerin 4-5 pills daily. Her daily activity is quite limited by chest discomfort. She underwent rotational atherectomy, balloon angioplasty and stent placement to the left main lesion. The procedure was complicated by coronary dissection and transient ST change. The final angiographic result was excellent. The patient was discharged from the hospital on the following day in good condition. She was referred to outpatient cardiac rehab. The patient will follow with Dr. Schafer in 4-6 weeks. Her medications remain the same with the addition of Plavix 75 mg once daily for a minimum of one year. Isosorbide mononitrate will be discontinued. [facility] C[facility]ERStephanie
--- NOTE | 2017-02-28 15:26 | NUR ---
Social Work Note: Initial Assessment/Discharge Data& Assessment: EMR reviewed. Per MD in multidisciplinary rounds, pt is medically ready to discharge. MACHINE TOOL MECHANIC met with pt at bedside to confirm discharge plan and assess for any unmet needs, MACHINE TOOL MECHANIC role explained and discharge planning checklist packet provided. Sarah Zelaya is a 66 year old female admitted under observation status on 02/27/2017 for angina and chest pain. Per MD pt is medically improved and ready for discharge. Pt has [facility] out of [facility] and Medicare insurance coverage. Pt sees Anthony Kaur MD for primary care. Pt lives in [place] in a two level home and is independent at baseline with all ADL's and no DME needs. Pt does not have HH or SNF hx. Pt does not have LTC insurance or VA benefits. Pt states she has DPOA/AD paperwork completed, MACHINE TOOL MECHANIC requested a copy when possible. Pt daughter providing transportation home today. Pt denies any needs. MD does not identify any concerns with pt capacity for self care. No MD orders identified. All updated and agreeable to plan. Plan: Per MD pt is medically ready to discharge home via POV. No other MD orders or pt needs identified. ASTRID Rhodes Addendum: 02/28/17 at 1530 by SWAPNIL HOFFMAN Amended: Links added.
== END 2017-02-28 12:40 | disposition home or self-care (01) ==
LOC: SOUO 00:40 → EDSTATUS 14:01 → UNDOADMOB 18:37 → PCC 18:37 → UNDODISOB 02-28 12:40 → SOUO 02-28 12:40
PROVIDERS: ATTEND Internal Medicine Interventional Cardiology
DX: I25.119 Atherosclerotic heart disease of native coronary artery with unspecified angina pectoris (principal); I25.84 Coronary atherosclerosis due to calcified coronary lesion; I25.42 Coronary artery dissection; I10 Essential (primary) hypertension; E78.5 Hyperlipidemia, unspecified; Z87.891 Personal history of nicotine dependence; I25.2 Old myocardial infarction; Z95.1 Presence of aortocoronary bypass graft; Z95.5 Presence of coronary angioplasty implant and graft; R09.89 Other specified symptoms and signs involving the circulatory and respiratory systems
CPT/HCPCS: 36415; 80048; 85025; 85027; 85610; 93005; 99152; 99153; C9602; J1644; J2060; J2250; J2270; J2720; J3010; J7030